=== PATIENT | male | born 1955 | race Caucasian/White ===

== ENCOUNTER 2017-08-20 07:50 | Day surgery (SDC) | payer BC ==
[~2017-08-20 07:50] MED LIST: ACETAMINOPHEN 1,000 MG/100 ML BTL IV ONE
[2017-08-20] MEDS ORDERED: *PACU ONLY* KETAMINE HCL 10 MG/ML (20ML) VIAL IV ONE (07:51)
[2017-08-20] MEDS ORDERED: BUPIVACAINE 0.75% W/EPI MPF 30ML VIAL IVP ONE (07:51)
[2017-08-20] MEDS ORDERED: PROPOFOL 10 MG/ML VIAL IV ONE (07:51)
[2017-08-20] MEDS ORDERED: DEXAMETHASONE PRESERVATIVE FREE 10MG/ML VIAL IV ONE (07:51)
[2017-08-20] MEDS ORDERED: FENTANYL PF 100MCG/2ML VIAL IV ONE (07:51)
[2017-08-20] MEDS ORDERED: LIDOCAINE 1% W/EPI 1:200,000 MPF 30ML SQ ONE (07:51)
[2017-08-20] MEDS ORDERED: MIDAZOLAM HCL 2MG/2ML VIAL IV ONE (07:51)
[2017-08-20] MEDS ORDERED: LIDOCAINE 2% MDV (20MG/ML) 20ML VIAL IV ONE (07:51)
--- NOTE | 2017-08-21 06:56 | Operative Note - Ferro ---
DATE OF SURGERY: 08/20/2017. PREOPERATIVE DIAGNOSIS: CERVICAL SPONDYLOSIS WITHOUT MYELOPATHY, ICD-10 CODE M47.812. POSTOPERATIVE DIAGNOSIS: CERVICAL SPONDYLOSIS WITHOUT MYELOPATHY, ICD-10 CODE M47.812. PROCEDURE: Radiofrequency rhizotomy of the bilateral cervical facets 4-5, 5-6, and 6-7. ANESTHESIA: Local sedation. ANESTHESIA PROVIDER: Jared Licea CRNA. INDICATIONS: This patient presents with pain in the neck and shoulders. Diagnostics showed diffuse spondylosis focused at 4-5, 5-6, and 6-7. A cervical facet injection at the above levels resulted in 75 percent pain control. Due to the failure of all therapy and the success of the facet series , the patient presents today for a rhizotomy for more long-term relief. DESCRIPTION OF PROCEDURE: Intravenous lines, vital signs, monitoring, and intravenous sedation. Prepped and draped with sterile technique. The cervical facets in the area of pain were identified and marked at 4-5, 5-6, and 6-7 bilaterally. Each one of these points on the skin was infiltrated. A 22-gauge rhizotomy cannula was positioned. Stimulation trial was conducted and rhizotomy burn was performed. Local with anti-inflammatory into the sites. Topical antibiotic and sterile dressing applied. Will monitor and evaluate. cc: Ronaldo Rae D.O. JOB NUMBER: [id number] MTDD
== END 2017-08-20 10:06 | disposition home or self-care (01) ==
LOC: SUR 07:50
PROVIDERS: ATTEND Pain Medicine Interventional Pain Medicine
DX: M47.812 Spondylosis without myelopathy or radiculopathy, cervical region (principal)
CPT/HCPCS: J3490

== ENCOUNTER 2018-03-18 06:40 | Day surgery (SDC) | payer BC ==
[2018-03-18] MEDS ORDERED: FENTANYL PF 100MCG/2ML VIAL IV ONE (06:41)
[2018-03-18] MEDS ORDERED: DEXAMETHASONE PRESERVATIVE FREE 10MG/ML VIAL IV ONE (06:41)
[2018-03-18] MEDS ORDERED: LIDOCAINE 1% W/EPI 1:200,000 MPF 30ML SQ ONE (06:41)
[2018-03-18] MEDS ORDERED: BUPIVACAINE 0.5% W/EPI MPF 30 ML VIAL IVP ONE (06:41)
[2018-03-18] MEDS ORDERED: *PACU ONLY* KETAMINE HCL 10 MG/ML (20ML) VIAL IV ONE (06:41)
[2018-03-18] MEDS ORDERED: PROPOFOL 10 MG/ML VIAL IV ONE (06:41)
[2018-03-18] MEDS ORDERED: MIDAZOLAM HCL 2MG/2ML VIAL IV ONE (06:41)
--- NOTE | 2018-03-19 13:55 | Operative Note ---
DATE OF SURGERY: 03/18/2018. PREOPERATIVE DIAGNOSIS: CERVICAL SPONDYLOSIS WITHOUT MYELOPATHY, ICD-10 CODE M47.812. POSTOPERATIVE DIAGNOSIS: CERVICAL SPONDYLOSIS WITHOUT MYELOPATHY, ICD-10 CODE M47.812. PROCEDURE: Radiofrequency rhizotomy of the bilateral cervical facets 4-5, 5-6, and 6-7. PRIMARY PHYSICIAN: Ronaldo Rae D.O. INDICATIONS: This patient presents with neck pain. Examination shows diffuse tenderness in the cervical spine. Range of motion does cause pain to the neck with extension. Diagnostic studies show extensive spondylosis. A facet series provided 75 percent pain control. Due to the failure of therapy and the success of the facet series, the patient presents for rhizotomy for more long- term relief. DESCRIPTION OF PROCEDURE: Intravenous lines, vital sign monitoring, and intravenous sedation. Prepped and draped with sterile technique. Under imaging the facets at C4-5, 5-6, and 6-7 were marked and infiltrated. A 22- gauge rhizotomy cannula was positioned. Stimulation trial was conducted and rhizotomy burn was performed. Local with anti-inflammatory into the sites. Topical antibiotic and sterile dressing were applied. Will monitor and evaluate. cc: Ronaldo Rae D.O. JOB NUMBER: [id number] MTDD
== END 2018-03-18 08:45 | disposition home or self-care (01) ==
LOC: SUR 06:40
PROVIDERS: ATTEND Pain Medicine Interventional Pain Medicine
DX: M47.812 Spondylosis without myelopathy or radiculopathy, cervical region (principal)

== ENCOUNTER 2018-09-30 07:32 | Day surgery (SDC) | payer BC ==
[2018-09-30] MEDS ORDERED: BUPIVACAINE 0.5% W/EPI MPF 30 ML VIAL IVP ONE (07:33)
[2018-09-30] MEDS ORDERED: LIDOCAINE 2% MDV (20MG/ML) 20ML VIAL IV ONE (07:33)
[2018-09-30] MEDS ORDERED: DEXAMETHASONE PRESERVATIVE FREE 10MG/ML VIAL IV ONE (07:33)
[2018-09-30] MEDS ORDERED: MIDAZOLAM HCL 2MG/2ML VIAL IV ONE (07:33)
[2018-09-30] MEDS ORDERED: PROPOFOL 10 MG/ML VIAL IV ONE (07:33)
[2018-09-30] MEDS ORDERED: KETAMINE HCL 100MG/1ML VIAL INJ ONE (07:33)
[2018-09-30] MEDS ORDERED: FENTANYL PF 100MCG/2ML VIAL IV ONE (07:33)
[2018-09-30] MEDS ORDERED: LIDOCAINE 1% W/EPI 1:200,000 MPF 30ML SQ ONE (07:33)
--- NOTE | 2018-10-01 19:22 | Operative Note ---
DATE OF SURGERY: 09/30/2018. PREOPERATIVE DIAGNOSIS: CERVICAL SPONDYLOSIS WITHOUT MYELOPATHY, ICD-10 CODE = M47.812. SURGERY: RADIOFREQUENCY RHIZOTOMY BILATERAL CERVICAL FACETS 4-5, 5-6, AND 6-7. SURGEON: LISA ALFREDO D.O. ANESTHESIA: LOCAL SEDATION. ANESTHESIA PROVIDER: NORBERT EDWARD CRNA. INDICATION: This patient presents with pain, which is neck. Examination shows diffuse tenderness in the cervical spine. Range of motion does cause pain in the neck with extension. Diagnostic studies show diffuse and multilevel endplate changes, spondylosis. A facet series and previous rhizotomy with 75% to 85% pain control. He is here for repeat rhizotomy due to the failure of other therapy. SURGERY: Intravenous line, vital sign monitoring, IV sedation, prepped and draped, sterile technique. Cervical facets 4-5, 5-6, and 6-7 were marked bilateral. Skin infiltrated. #22 gauge rhizotomy cannula positioned. Stimulation trials conducted. Rhizotomy burn performed. Local with anti- inflammatory into the sites. Topical antibiotics. Sterile dressing was applied. We will monitor and evaluate. cc: Dr. Ronaldo Rae JOB NUMBER: [id number] [facility]
== END 2018-09-30 09:27 | disposition home or self-care (01) ==
LOC: SUR 07:32
PROVIDERS: ATTEND Pain Medicine Interventional Pain Medicine
DX: M47.812 Spondylosis without myelopathy or radiculopathy, cervical region (principal)
CPT/HCPCS: J3490

== ENCOUNTER 2019-03-31 06:04 | Day surgery (SDC) | payer MEDICARE, BC ==
[2019-03-31] MEDS ORDERED: PROPOFOL 10 MG/ML VIAL IV ONE (06:05)
[2019-03-31] MEDS ORDERED: FENTANYL PF 100MCG/2ML VIAL IV ONE (06:05)
[2019-03-31] MEDS ORDERED: MIDAZOLAM HCL 2MG/2ML VIAL IV ONE (06:05)
[2019-03-31] MEDS ORDERED: LIDOCAINE 2% MDV (20MG/ML) 20ML VIAL IV ONE (06:05)
[2019-03-31] MEDS ORDERED: RINGERS SOLUTION,LACTATED 1,000 ML IV ONE (06:47)
[2019-03-31] MEDS ORDERED: BUPIVACAINE 0.5% W/EPI MPF 30 ML VIAL SQ ONE (08:02)
[2019-03-31] MEDS ORDERED: LIDOCAINE 1% W/EPI 1:200,000 MPF 30ML SQ ONE (08:03)
[2019-03-31] MEDS ORDERED: DEXAMETHASONE PRESERVATIVE FREE 10MG/ML VIAL SQ ONE (08:03)
--- NOTE | 2019-04-07 10:00 | Operative Note ---
DATE OF SURGERY: 03/31/2019 PREOPERATIVE DIAGNOSIS: Cervical spondylosis without myelopathy, ICD10 code M47.812. OPERATION: Fluoroscopic-guided radiofrequency rhizotomy of bilateral cervical facets 4-5, 5-6, 6-7. INDICATIONS: This patient presents with primary neck pain. Examination showed tenderness of the cervical spine. Range of motion does cause pain in the neck with extension. Diagnostic imaging shows diffuse multiple level spondylosis. PROCEDURE: Intravenous line, vital sign monitoring, IV sedation, prepped and draped in sterile technique. Under imaging, cervical facets at 4-5, 5-6, and 6-7 were marked, infiltrated. A 22-gauge rhizotomy cannula positioned at each site bilaterally. Stimulation trial was conducted. Rhizotomy burn 80 degrees 90 seconds at each site bilateral. Local with antiinflammatory into the sites. Topical antibiotic and sterile dressing applied. His position was prone. The prep and sterile technique were performed. There were no incidents during the procedure. Will monitor and evaluate. He was transported to the recovery room stable. JON
== END 2019-03-31 08:45 | disposition home or self-care (01) ==
LOC: SUR 06:04
PROVIDERS: ATTEND Pain Medicine Interventional Pain Medicine
DX: M47.812 Spondylosis without myelopathy or radiculopathy, cervical region (principal); J45.909 Unspecified asthma, uncomplicated
CPT/HCPCS: J7120

== ENCOUNTER 2019-10-06 05:59 | Day surgery (SDC) | payer MEDICARE, BC ==
[2019-10-06] MEDS ORDERED: PROPOFOL 10 MG/ML VIAL IV ONE (06:00)
[2019-10-06] MEDS ORDERED: LIDOCAINE 2% MDV (20MG/ML) 20ML VIAL IV ONE (06:00)
[2019-10-06] MEDS ORDERED: FENTANYL PF 100MCG/2ML VIAL IV ONE (06:00)
[2019-10-06] MEDS ORDERED: MIDAZOLAM HCL 2MG/2ML VIAL IV ONE (06:00)
[2019-10-06] MEDS ORDERED: RINGERS SOLUTION,LACTATED 1,000 ML IV ONE (06:28)
[2019-10-06] MEDS ORDERED: LIDOCAINE 1% W/EPI 1:100,000 MDV 20 ML VIAL SQ ONE (08:02)
[2019-10-06] MEDS ORDERED: DEXAMETHASONE PRESERVATIVE FREE 10MG/ML VIAL SQ ONE (08:02)
[2019-10-06] MEDS ORDERED: BUPIVACAINE 0.5% W/EPI MPF 30 ML VIAL SQ ONE (08:02)
--- NOTE | 2019-10-06 08:49 | Operative Note - [place]ro ---
DATE OF SURGERY: 10/06/2019 PREOPERATIVE DIAGNOSIS: CERVICAL SPONDYLOSIS WITHOUT MYELOPATHY, ICD-10 CODE M47.812. OPERATION: RADIOFREQUENCY RHIZOTOMY BILATERAL CERVICAL FACETS C4-C5, C5-C6 AND C6-C7. SURGEON: Girma Mccall D.O. ANESTHESIA: Local sedation. ANESTHESIA PROVIDER: Jared Licea CRNA INDICATION: This patient presents with primary neck pain. Examination of the cervical spine showed range of motion does produce pain in the neck with extension. Diagnostics showed diffuse end plate changes, disk abnormalities, the primary focus appears to be C4-C5, C5-C6, and C6-C7. A previous facet series showed 75% pain control. Due to the failure of other therapies, a rhizotomy was performed with similar 75% relief over a period of approximately one year. With return of the pain and the failure of his therapies and after appropriate diagnostic tests appear to be positive, he is here for repeat rhizotomy. All of his conservative therapies have not appreciably helped. Physical therapy and biomechanical treatments have not been of any value. There has been no surgery to the spine and no surgical evaluation seemed to be indicated. PROCEDURE: Intravenous line, vital sign monitoring, IV sedation, prepped and draped, sterile technique. Under imaging the cervical facets in the area of pain were identified and marked C4-C5, C5-C6, and C6-C7 bilateral, each one of these points on the skin infiltrated. A 22-gauge rhizotomy cannula positioned. Stimulation trial was conducted. Rhizotomy burn performed along with antiinflammatory into the sites. Topical antibiotic and sterile dressing applied. Will monitor and evaluate. His current pain level 0-10 as he came in today for the procedure was an 8/10. JOB NUMBER: [id number] [facility]
== END 2019-10-06 08:44 | disposition home or self-care (01) ==
LOC: SUR 05:59
PROVIDERS: ATTEND Pain Medicine Interventional Pain Medicine
DX: M47.812 Spondylosis without myelopathy or radiculopathy, cervical region (principal); J45.909 Unspecified asthma, uncomplicated; K21.9 Gastro-esophageal reflux disease without esophagitis
CPT/HCPCS: 64633; 64634 ×2; 01936; J1100; J3010; J7120